=== PATIENT | female | born 1955 | race Two or more races ===

== ENCOUNTER 2018-08-21 10:30 | Inpatient (IN) | payer OTHER ==
[~2018-08-21] VITALS: Ht 170.2 cm; Wt 60.3 kg
[2018-08-21] MEDS ORDERED: SULFADIAZINE500 MG PO (12:22)
[2018-08-21] MEDS ORDERED: PEDIAPRED5 MG/5 ML PO (12:23)
[2018-08-21] MEDS ORDERED: SYNTROID PO (12:24)
[2018-08-21] MEDS ORDERED: THEOPHYLLINE A300 M1 PO (12:24)
[2018-08-21] MEDS ORDERED: CARTIA XT240 MG PO (12:25)
[2018-08-21] MEDS ORDERED: SINGULAIR 4MG4 MG PO (12:25)
[2018-08-21] MEDS ORDERED: SYMBICORT 16010.2 GM IH (12:28)
== END 2018-09-04 11:08 | disposition home or self-care (01) | DRG 330 ==
LOC: SURH 10:30 → O/R 08-28 08:32 → SURH 08-28 08:32
PROVIDERS: ADMIT Colon & Rectal Surgery
PROC: 0DQN0ZZ Repair Sigmoid Colon, Open Approach (ICD-10-PCS; 2018-08-28)
PROC: 0DQ80ZZ Repair Small Intestine, Open Approach (ICD-10-PCS; 2018-08-28)
PROC: 0DJD8ZZ Inspection of Lower Intestinal Tract, Via Natural or Artificial Opening Endoscopic (ICD-10-PCS; 2018-08-28)
PROC: 0DTN0ZZ Resection of Sigmoid Colon, Open Approach (ICD-10-PCS; principal; 2018-08-28 10:00)
DX: K57.20 Diverticulitis of large intestine with perforation and abscess without bleeding (principal); K56.690 Other partial intestinal obstruction; K91.72 Accidental puncture and laceration of a digestive system organ or structure during other procedure; Z43.3 Encounter for attention to colostomy; N73.6 Female pelvic peritoneal adhesions (postinfective); I11.9 Hypertensive heart disease without heart failure; E03.8 Other specified hypothyroidism; J43.8 Other emphysema; M06.89 Other specified rheumatoid arthritis, multiple sites; J45.20 Mild intermittent asthma, uncomplicated; Z79.52 Long term (current) use of systemic steroids

== ENCOUNTER 2024-12-06 06:02 | Inpatient (IN) | payer OTHER ==
[~2024-12-06] VITALS: Ht 170.2 cm; Wt 65.8 kg
[~2024-12-06 06:02] MED LIST: CARTIA XT240 MG PO; PEDIAPRED5 MG/5 ML PO; SINGULAIR 4MG4 MG PO; SULFADIAZINE500 MG PO; SYMBICORT 16010.2 GM IH; SYNTROID PO; THEOPHYLLINE A300 M1 PO
--- NOTE | 2024-12-06 06:18 | NUR ---
PTE ALERTA Y ORIENTADA X3. REFIERE JANENE ESTADO [facility]OSPITAL[facility] EN [place] DES[place] EL [address] [place] EL [address] POR OBSTRUCCION INTESTINAL. PTE REFIERE QUE EXONERO YA QUE EL HOSPITAL NO LE PUDO PROVEER CONSULTA CON ESPECIALISTA NI TRASLADO A [facility] DONDE SE ENCUENTRA STONER QUIEN ES . PTE REFIERE TENER DOLOR ABDOMINAL Y NO PODER DEFECAR DESDE EL [address] ROBERT SV Y SE UBICA.
[2024-12-06] MEDS ORDERED: 0.9 % SODIUM CHLORIDE 1,000 ML IV STA (06:44)
[2024-12-06] MEDS ORDERED: HYOSCYAMINE SULFATE 0.125 MG TAB.SUBL SL ONE (06:45)
[2024-12-06] MEDS ORDERED: KETOROLAC TROMETHAMINE 30 MG VIAL IV STA (06:45)
[2024-12-06] MEDS ORDERED: HYOSCYAMINE SULFATE 0.125 MG TAB.SUBL ONE (07:00)
[2024-12-06] MEDS ORDERED: KETOROLAC TROMETHAMINE 30 MG VIAL ONE (07:00)
--- NOTE | 2024-12-06 07:22 | NUR ---
PTE EVALUADO POR EL DR. GALDAMEZ. RN DOSHI CANALIZA, COLECTA MUESTRAS DE LAB Y ADMINISTRA MEDICAMENTO JOSE ORDEN MEDICA BAJO MEDIDAS ASEPTICAS. SE NOTIFICA CT.
[2024-12-06 07:43] LABS: BASO % 0.6 % (0.1-1.2); EOS # 0.47 (0.04-0.54); EOS % 4.4 % (0.7-7.0); HEMATOCRIT 36.6 % (34.1-44.9); HEMOGLOBIN 12.5 g/dL (11.2-15.7); LYMPH # 1.84 (1.18-3.74); LYMPH % 17.2 % (19.3-53.1); MEAN CORPUSCULAR HEMOGLOBIN 30.1 pg (25.6-32.2); MONO # 1.06 (0.24-0.82); MONO % 9.9 % (4.7-12.5); NEUT # 7.21 (1.56-6.13); NEUT % 67.3 % (34.0-71.1); PLATELET COUNT 330 K/uL (163-369); RED BLOOD COUNT 4.15 M/uL (3.93-5.22); RED CELL DISTRIBUTION WIDTH 13.5 % (11.6-14.4)
[2024-12-06 08:02] LABS: INR 1.15; PARTIAL THROMBOPLASTIN TIME 29.3 SECONDS (22.0-34.0); PROTHROMBIN TIME 12.4 SECONDS (9.0-11.5)
[2024-12-06 09:05] LABS: ALBUMIN 3.2 gm/dL (3.4-5.0); BILIRUBIN TOTAL 0.53 mg/dL (0.3-1.2); CREATININE SERUM 0.67 mg/dL (0.55-1.02); GFR 87.27; GLOBULINA 3.6 G/DL (2.4-3.5); POTASSIUM 4.13 mEq/L (3.5-5.1); TOTAL PROTEIN 6.8 gm/dL (6.4-8.2)
[2024-12-06] MEDS ORDERED: LIDOCAINE HCL VISCOUS 20MG/ML BLIST 15ML MM ONE (12:39)
[2024-12-06] MEDS ORDERED: PIPERACILLIN/TAZOBACTAM SODIUM 3.375 GM in DEXTROSE 5 % IN WATER 100 ML IV SCH (20:05)
[2024-12-06] MEDS ORDERED: FAMOTIDINE/PF 20 MG in 0.9 % SODIUM CHLORIDE 8 ML IV PUSH SCH (20:08)
[2024-12-06] MEDS ORDERED: DEXTROSE 5 % AND 0.9 % NACL 1,000 ML IV SCH (20:15)
[2024-12-06] MEDS ORDERED: ONDANSETRON HCL 4 MG in 0.9 % SODIUM CHLORIDE 50 ML IV PRN (20:15)
[2024-12-06] MEDS ORDERED: ENALAPRILAT DIHYDRATE 1.25 MG/ML VIAL IV PRN (20:15)
[2024-12-06] MEDS ORDERED: PIPERACILLIN/TAZOBACTAM SODIUM 3.375 GM VIAL IV ONE (20:23)
[2024-12-06] MEDS ORDERED: FAMOTIDINE/PF 20 MG/2 ML VIAL ONE (20:23)
[2024-12-06 21:53] LABS: PH,URINE 5.5 (5.0-8.0); URINE APPEARANCE Clear; URINE BILIRRUBIN Small (NEGATIVE); URINE BLOOD Trace; URINE COLOR Dark Yellow; URINE GLUCOSE Negative (NEGATIVE); URINE LEUKOCYTE Small; URINE NITRATE Negative; URINE PROTEIN 30 (NEGATIVE); URINE UROBILINOGEN 0.2 E.U./dl
[2024-12-06 21:57] LABS: URINE BACTERIA 14.6 uL (0.0-1933); URINE CAST 6.62 uL (0.0-1.40); URINE EPITHELIAL CELLS 32.4 uL (0.0-38.8); URINE RBC 10.9 uL (0.0-20.8); URINE WBC 40.9 uL (0.0-23.2)
[2024-12-06 22:07] LABS: URINE KETONE 40 (NEGATIVE)
[2024-12-06 22:08] LABS: URINE MUCUS HEAVY
[2024-12-07 08:00] VITALS: BP 160/89; O2SAT 97
[2024-12-07] MEDS ORDERED: DILTIAZEM HCL 240 MG CAP.SR.24H PO SCH (09:00)
[2024-12-07 15:34] VITALS: BP 139/82; O2SAT 95
[2024-12-07] MEDS ORDERED: METOCLOPRAMIDE HCL 5 MG/ML VIAL IV SCH (17:00)
[2024-12-08 08:00] VITALS: BP 114/74; O2SAT 97
[2024-12-09 00:24] VITALS: BP 125/65; O2SAT 91
[2024-12-09 07:45] VITALS: BP 136/76; O2SAT 94
[2024-12-09 08:33] LABS: BASO % 0.2 % (0.1-1.2); EOS # 0.56 (0.04-0.54); EOS % 6.9 % (0.7-7.0); HEMOGLOBIN 12.9 g/dL (11.2-15.7); LYMPH # 1.64 (1.18-3.74); LYMPH % 20.3 % (19.3-53.1); MEAN CORPUSCULAR HEMOGLOBIN 30.4 pg (25.6-32.2); MONO # 0.93 (0.24-0.82); MONO % 11.5 % (4.7-12.5); NEUT % 60.7 % (34.0-71.1); PLATELET COUNT 383 K/uL (163-369); RED BLOOD COUNT 4.25 M/uL (3.93-5.22); RED CELL DISTRIBUTION WIDTH 13.9 % (11.6-14.4)
[2024-12-09 09:02] LABS: ALBUMIN 3.2 gm/dL (3.4-5.0); BILIRUBIN TOTAL 0.55 mg/dL (0.3-1.2); CALCIUM 8.7 mg/dL (8.5-10.1); CREATININE SERUM 0.78 mg/dL (0.55-1.02); GFR 73.23; GLOBULINA 3.5 G/DL (2.4-3.5); POTASSIUM 3.29 mEq/L (3.5-5.1); TOTAL PROTEIN 6.7 gm/dL (6.4-8.2)
[2024-12-09] MEDS ORDERED: POTASSIUM CHLORIDE IN WATER 40 MEQ/100 ML PIGGYBAG IV NR (13:20)
[2024-12-09 15:38] VITALS: BP 113/71; O2SAT 98
[2024-12-10 01:08] VITALS: BP 103/58; O2SAT 95
[2024-12-10 07:39] VITALS: BP 113/64; O2SAT 96
[2024-12-10] MEDS ORDERED: POTASSIUM CHLORIDE 10 MEQ CAPSULE PO NR (10:00)
[2024-12-10 11:43] LABS: CALCIUM 8.9 mg/dL (8.5-10.1); CREATININE SERUM 0.78 mg/dL (0.55-1.02); GFR 73.23; POTASSIUM 3.91 mEq/L (3.5-5.1)
== END 2024-12-10 14:43 | disposition home or self-care (01) | DRG 389 ==
LOC: ER 06:02 → SURG 12-07 00:08
PROVIDERS: General Practice; Internal Medicine; ADMIT Internal Medicine; ATTEND Internal Medicine
PROC: 0D9670Z Drainage of Stomach with Drainage Device, Via Natural or Artificial Opening (ICD-10-PCS; principal; 2024-12-06)
PROC: BW21YZZ Computerized Tomography (CT Scan) of Abdomen and Pelvis using Other Contrast (ICD-10-PCS; 2024-12-06)
PROC: 02HV33Z Insertion of Infusion Device into Superior Vena Cava, Percutaneous Approach (ICD-10-PCS; 2024-12-08)
PROC: B548ZZA Ultrasonography of Superior Vena Cava, Guidance (ICD-10-PCS; 2024-12-08)
DX: K56.600 Partial intestinal obstruction, unspecified as to cause (principal); K90.49 Malabsorption due to intolerance, not elsewhere classified; E87.6 Hypokalemia; E03.9 Hypothyroidism, unspecified; I10 Essential (primary) hypertension